=== PATIENT | female | born 1955 | race Hispanic/Latino ===

== ENCOUNTER 2017-03-01 12:39 | Emergency (ER) | payer MEDICARE, MEDICAID ==
[~2017-03-01] VITALS: Ht 157.5 cm; Wt 77.7 kg
[~2017-03-01 12:39] MED LIST: ALLO300T29 PO; AMLO5TAB90 PO; CHOL10008 PO; COLC0.6T52 PO; DOXE1CAP PO; FURO-3 PO; HYDR-3479 PO; MVI PO; POLY1PAC PO; PRED5TAB PO
[2017-03-01 12:47] VITALS: BP 161/84; PULSE 71; RESP 16; O2SAT 94
[2017-03-01 14:46] LABS: BASOPHILS % (AUTO) 0.2 % (0-3); EOSINOPHILS % (AUTO) 0.2 % (0-5); MONOCYTES % (AUTO) 5.6 % (4-12); Mean Corpuscular Hemoglobin 29.8 pg (27.0-35.0); Mean Corpuscular Volume 88.4 fL (81-100); NEUTROPHILS % (AUTO) 80.4 % (40-74); Platelet Count 159 bil/L (150-400)
--- NOTE | 2017-03-01 15:27 | ED.REPORT ---
HPI-Back Pain 40 and Over Date of Service Mar 01, 2017 ED Provider: Ian Modi PA-C Yoli is a 61-year-old female with a history of kidney transplant who presents with a chief complaint of lower back pain. She states the pain began approximately 2 weeks ago. She first noticed at the morning after a strenuous workout. She locates the pain above her tailbone. She reports the pain has been worsening since then. Over the last 3 days she has experienced progressive neurological changes to the point where she finds it challenging to walk now and uses a walker at home. Complains of "instability, shakiness" in her right leg when she walks Denies shooting pain in her legs. Denies fever, DM , HIV, organ transplant, immunosuppression, recent surgery, recent infection, history of back surgery, surgical implants and IV drug use. Denies bowel/ bladder dysfunction and saddle anesthesia. She denies taking anything for pain. Kidney transplant was performed approximately 2 years ago, and she continues immunosuppressive medication and prednisone. Nursing Notes Stated Complaint: LOWER BACK INJURY Chief Complaint: Back Pain or Injury Nursing Notes Reviewed: Yes Allergies: Coded Allergies: Vmwyqlb-Css-Quf Reductase Inhibitor (Verified Allergy, Severe, MYALGIAS, ) Scheduled Allopurinol-Expunged Drug, Do Not Renew! (Allopurinol-Expunged Drug, Do Not Renew!) 300 Mg Tablet 200 MG PO DAILY AmLODIPine-Expunged Drug, Do Not Renew! (AmLODIPine-Expunged Drug, Do Not Renew! ) 5 Mg Tablet 2.5 MG PO DAILY Cholecalciferol-Expunged Drug, Do Not Renew! (Vitamin D3-Expunged Drug, Do Not Renew!) 1,000 Unit Tab.chew 50,000 UNIT PO weekly Colchicine-Expunged Drug, Do Not Renew! (Colchicine-Expunged Drug, Do Not Renew! ) 0.6 Mg Tablet 0.6 MG PO DAILY Doxercalciferol-Expunged Drug, Do Not Renew! (Hectorol-Expunged Drug, Do Not Renew!) 1 Mcg Capsule 2.5 MCG PO DAILY Furosemide-Expunged Drug, Do Not Renew! (Furosemide-Expunged Drug, Do Not Renew! ) 40 Mg Tablet 40 MG PO DAILY 40 MG DAILY PEG 3350-Expunged Drug, Do Not Renew! (MIRALAX-Expunged Drug, Do Not Renew!) 17 Gm/Pkt Packet 17 GM PO DAILY Therapeutic Multivit/Minerals-Expunged Drug, (Therapeutic Multivit/Minerals- Expunged Drug,) 1 Ea Tab 1 TAB PO DAILY Scheduled PRN Hydrocod/APAP-Expunged, Do Not Renew! (VICODIN 5/300-Expunged Drug, Do Not Renew ) 1 Each Tablet 1 TAB PO Q4H PRN PRN For Pain For mild-moderate pain. Hydrocodone-Acetaminophen 5-325 mg (Hydrocodone-Acetaminophen 5-325 mg) 1 Each Tablet 1-2 TABLET PO Q4H PRN PRN For Pain PredniSONE-Expunged Drug, Do Not Renew! (Deltasone-Expunged Drug, Do Not Renew! ) 5 Mg Tablet 20 MG PO DAILY PRN PRN for gout General Time Seen by MD: 14:49 Chief Complaint Back pain Sudden in Onset?: No Past Medical History Past Medical History Kidney transplant 2 years ago. Denies: AIDS, Bleeding disorder, Cancer, Diabetes mellitus, HIV Review of Systems Review of Systems Note: Negative unless stated otherwise in history of present illness Physical Exam General: Well appearing, well developed, well nourished, no acute distress. Head: Atraumatic, normocephalic. Eyes: No scleral icterus or injection. No discharge. Vision grossly intact. ENT: Voice clear, hearing grossly intact. Respiratory: Regular rate and rhythm. Breath sounds present, clear to auscultation and equal bilaterally. No respiratory distress. No increased work of breathing, speaks in complete sentences. Cardiovascular: Regular rate and rhythm, without murmur, gallop or rub. No pedal edema. Gastrointestinal: Abdomen flat and non-tender without guarding or rebound. Bowel sounds normoactive. Transplant site left lower quadrant nontender, no redness, swelling. Skin: Warm and dry. Back: Normal to inspection. Mild midline spinous process tenderness over sacrum. Negative SI tenderness. Left arm: Fistula intact. Neurological: Abnormal gait: High step on the right with external rotation. Normal Romberg. Hip flexion R>L, knee extension, ankle dorsiflexion and plantarflexion strength 5/5 B/L. Patellar reflex absent bilaterally. Achilles reflexes present and equal B/L. Sensation to sharp touch intact at medial leg, dorsal foot and lateral foot B/L. negative seated straight leg raise, negative seated cross straight leg raise. Psychological: Alert and oriented. Speech appropriate, linear and logical. Behavior appropriate. Initial Vital Signs Vital Signs (First) Date Time Temp Pulse Resp B/P Pulse Ox O2 Delivery O2 Flow Rate FiO2 03/01/17 12:47 36.2 71 16 161/84 94 Room Air Initial VS: Reviewed, Vital signs normal Interpretation & Diagnostics Interpretation & Diagnostics: PROCEDURE: MRI LUMBAR SPINE WITHOUT CONTRAST ([id number]) INDICATIONS: progressive neurologic dysfunction Right leg IMPRESSION: 1. Multilevel degenerative disc disease. 2. Multilevel facet arthropathy. 3. Severe L3-L4 central canal stenosis. Moderate to severe L4-L5 central canal narrowing. Moderate L2-L3 central canal narrowing. 4. Moderate bilateral L2-L3 neural foraminal narrowing. Severe bilateral L3-L4 and L4-L5 neural foraminal narrowing. Moderate right and mild left L5-S1 with neural foraminal narrowing. 5. Flattening deformity exiting bilateral L3 nerve roots and the exiting bilateral L4 nerve root secondary to neural foraminal stenosis. Please correlate clinically. Lab Results Interpretation Result Diagram: 03/01/17 1442 03/01/17 1442 Test 03/01/17 14:42 03/01/17 15:26 03/01/17 15:29 White Blood Count 4.1th/mm3 (3.8-10.1) Red Blood Count 4.57mil/mm3 (3.90-5.20) Hemoglobin 13.6g/dL (12.0-15.6) Hematocrit 40.4% (35.0-46.0) Mean Corpuscular Volume 88.4fL (81-100) Mean Corpuscular Hemoglobin 29.8pg (27.0-35.0) Mean Corpuscular Hemoglobin Concent 33.7% (32.0-37.0) Red Cell Distribution Width 13.5% (12.3-15.4) Platelet Count 159bil/L (150-400) Neutrophils (%) (Auto) 80.4% (40-74) Lymphocytes (%) (Auto) 13.6% (14-46) Monocytes (%) (Auto) 5.6% (4-12) Eosinophils (%) (Auto) 0.2% (0-5) Basophils (%) (Auto) 0.2% (0-3) Hold Blue Top Tube Received (Received) Sodium Level 137mEq/L (134-144) Potassium Level 4.2mEq/L (3.5-5.2) Chloride Level 99mEq/L (97-108) Carbon Dioxide Level 24mmol/L (18-29) Blood Urea Nitrogen 16mg/dL (8-27) Creatinine 0.89mg/dL (0.57-1.00) Estimat Glomerular Filtration Rate 92mL/min (>59) Glucose Level 182mg/dL (60-99) Calcium Level 10.1mg/dL (8.5-10.1) Total Bilirubin 0.5mg/dL (0.0-1.2) Aspartate Amino Transf (AST/SGOT) 20U/L (0-50) Alanine Aminotransferase (ALT/SGPT) 14U/L (0-32) Alkaline Phosphatase 67U/L (25-165) Total Protein 6.5g/dL (6.4-8.4) Albumin 4.2g/dL (3.4-5.0) Hold Red Top Tube Received (Received) Hold Moreno Top Tube Received (Received) Hold Urine Received (Received) Urine Color Yellow (YELLOW) Urine Appearance Clear (CLEAR,HAZY) Urine pH 6.5 (5.0-8.0) Urine Specific [place] 1.010 (1.003-1.035) Urine Protein Negativemg/dL (NEG,TRACE) Urine Glucose (UA) Negativemg/dL (NEGATIVE) Urine Ketones Negativemg/dL (NEGATIVE) Urine Occult Blood Negative (NEGATIVE) Urine Nitrite Negative (NEGATIVE) Urine Bilirubin Negative (NEGATIVE) Urine Urobilinogen Normalmg/dL (NORMAL) Urine Leukocyte Esterase Negative (NEGATIVE) Urine RBC 0-2/hpf (0-2) Urine WBC 0-5/hpf (0-5) Urine Epithelial Cells Few/hpf (NONE-MOD) Urine Crystals None seen (NONE SEEN) Urine Bacteria Few/hpf (NONE-FEW) Urine Hyaline Casts None/lpf (NONE) Urine Granular Casts None seen (NONE SEEN) Urine Waxy Casts None seen (NONE SEEN) Urine Red Blood Cell Casts None seen (NONE SEEN) Urine White Blood Cell Casts None seen (NONE SEEN) Urine Mucus None seen (None Seen) Urine Trichomonas None seen (NONE SEEN) Urine Yeast None (NONE SEEN) Urinalysis Comment None Urine Culture Reflexed Not indicated Re-Eval/Medical Decision Med Decision/Clinical Course 61-year-old female with two-week history of lower back pain. She notes this began the morning after a strenuous workout however condition has been deteriorating. Over the last few days she has noticed progressive neurological changes causing weakness in her right leg. She has a history of kidney transplant, but no other red flag history for epidural abscess or hematoma or cauda equina. Physical examination she does have observed gait with a high step and right leg external rotation. MRI reveals moderate to severe stenosis but negative abscess or cauda equina. We believe this is stable and safe to be discharged home. Provided instructions for follow-up with spine surgery and advised her to be seen in the next week. Provided strict emergency return precautions. Provided Percocet for pain control. She understands and agrees with the plan. Consultation : Referral / Consult Name: Saeid Drake DO Consulted With: Nephrology Call Returned at: 15:40 Note: Discussed the case, along with Dr. Jacome, with Dr. Drake. He does not believe this is related directly to her kidney transplant. Discharge & Departure Impression: Primary Impression: Radicular low back pain Ruled Out: Epidural abscess, Acute herniated disc, Cauda equina syndrome Disposition: Home Discharge Condition All VS Reviewed: Yes Condition: Stable Patient Instructions: Lumbar Radiculopathy (ED) Additional Instructions: History of evaluation for back pain in the emergency department. His physical revealed some concerning changes to the waiting walk. Because of this we ordered an MRI which reveals some narrowing of the part of your spine which contains the spinal cord. While this is not an immediately dangerous condition , is important to be seen by a spine surgeon in the next week. I will provide referral to Dr. Pena. Please contact him on Saturday to arrange follow-up. When you call, tell them this: "I was seen at the [facility] Emergency Department on Saturday for lower back pain. I have a history of a kidney transplant. They did an MRI of my lower spine which showed moderate to severe stenosis. They told me I have progressive neurologic changes and should be seen in the next week." I will provide you a prescription for small amount of pain medication. This is safe for your kidney transplant. Please not drive or drink alcohol within 4 hours of taking this medication. Return to emergency department for new or worsening symptoms including loss of bowel/bladder control and inability to urinate, numbness between your legs, fever or any worsening of your condition. Referrals: Jose Pena MD EDSupervising Provider for APC: Caro Jacome MD Attending Statement Patient seen and examined with Mr. Modi. Progressive pain in the low back for 2 weeks and 3 days has had increasing weakness in the right leg now with significant weakness with flexors and abductors. Significant gait disturbance due to the muscle weakness. MRI was ordered and shows no epidural abscess no acute herniation or chronic findings. She is referred to neurosurgery for urgent outpatient follow-up next week. copies to: Franck Salamanca MD; Jose Pena MD, Seth PA-C Mar 01, 2017 15:27 Caro Jacome MD Mar 01, 2017 18:27
[2017-03-01] MEDS ORDERED: oxyCODONE-Acetamin 5-325 mg Tablet PO ONE (15:40)
[2017-03-01 16:02] LABS: APPEARANCE,URINE CLEAR (CLEAR,HAZY); COLOR,URINE YELLOW (YELLOW); PH,URINE 6.5 (5.0-8.0)
[2017-03-01 16:03] LABS: OCCULT BLOOD,URINE NEGATIVE (NEGATIVE); UROBILINOGEN,URINE NORMAL (NORMAL)
--- NOTE | 2017-03-01 16:58 | DRSVH ---
PROCEDURE: MRI LUMBAR SPINE WITHOUT CONTRAST ([id number]) INDICATIONS: progressive neurologic dysfunction Right leg TECHNIQUE: Noncontrast sagittal T1 spin echo and T2 fast echo, sagittal STIR, axial T1 and T2 fast spin echo thr ough the lumbar spine. In cases with scoliosis, additional coronal T2 fast spin echo may be performe d. COMPARISON: None. FINDINGS: Image quality: Excellent. Alignment and Curvature: There is normal bony alignment and curvature. Bone Marrow: Benign, intraosseous hemangiomas noted in the L1 and L2 vertebral bodies. No acute verte bral body compression fractures. Spinal Cord: Conus medullaris terminates at the L2 level. Visualized cord demonstrates normal signa l and size. Paraspinous Soft Tissues: No paravertebral masses. [place] kidneys are severely atrophied. Transplant kidney noted in the left pelvis. L1-L2: Loss of the signal. Minimal, diffuse disc bulge. No central stenosis. No neural foraminal narr owing. No neural impingement. L2-L3: Loss of the signal. Mild, diffuse disc bulge. Mild bilateral facet hypertrophy. Moderate narro wing of the central canal secondary to disc disease and facet hypertrophy. Moderate bilateral neural foraminal narrowing secondary to disc and facet disease. L3-L4: Loss of the signal. Mild to moderate diffuse disc bulge. Mild facet hypertrophy. Moderate liga menta flava hypertrophy. Severe central stenosis secondary to disc disease and posterior element hype rtrophy. Severe bilateral neural foraminal narrowing secondary to disc and facet disease with slight flattening deformity exiting L3 nerve roots bilaterally. Focal high intensity zone is noted in the an terior annulus compatible the fissure. L4-L5: Loss of the signal. Mild to moderate diffuse disc bulge and mild facet and mild ligamentum fla vum hypertrophy. Moderate to severe narrowing of the central canal secondary to disc disease and post erior element hypertrophy. Severe bilateral neural foraminal narrowing secondary to disc and facet di sease with slight flattening deformity exiting L4 nerve roots bilaterally. L5-S1: Loss of disc signal. Minimal, diffuse disc bulge. Mild right and moderate left facet hypertrop hy. No central stenosis. Moderate right and mild left neural foraminal narrowing secondary to disc an d facet disease. No neural impingement. IMPRESSION: 1. Multilevel degenerative disc disease. 2. Multilevel facet arthropathy. 3. Severe L3-L4 central canal stenosis. Moderate to severe L4-L5 central canal narrowing. Moderate L2 -L3 central canal narrowing. 4. Moderate bilateral L2-L3 neural foraminal narrowing. Severe bilateral L3-L4 and L4-L5 neural ulysses inal narrowing. Moderate right and mild left L5-S1 with neural foraminal narrowing. 5. Flattening deformity exiting bilateral L3 nerve roots and the exiting bilateral L4 nerve root seco ndary to neural foraminal stenosis. Please correlate clinically. Dictated by: Ayleen Saleh MD, PhD on 03/01/2017 at 16:51 Approved by: Ayleen Saleh MD, PhD on 03/01/2017 at 16:57
[2017-03-01 17:42] VITALS: BP 140/80; PULSE 76; RESP 17; O2SAT 96
[2017-03-01] MEDS ORDERED: HYDR-4003 PO (18:38)
[2017-03-01 19:01] VITALS: BP 146/82; PULSE 80; RESP 16; O2SAT 96
== END 2017-03-01 19:01 | disposition home or self-care (01) ==
LOC: SED 12:39
DX: M54.16 Radiculopathy, lumbar region (principal); X50.1XXA Overexertion from prolonged static or awkward postures, initial encounter; Y93.89 Activity, other specified; Y99.8 Other external cause status; Y92.89 Other specified places as the place of occurrence of the external cause; Z88.8 Allergy status to other drugs, medicaments and biological substances